=== PATIENT | female | born 1960 ===

== ENCOUNTER 2024-02-07 06:10 | Day surgery (SDC) | payer OTHER, SELFPAY ==
[2024-02-07 06:56] VITALS: BMI 22.3
[2024-02-07 07:16] VITALS: BMI 22.3
[2024-02-07 07:30] VITALS: BP 132/83
[2024-02-07 08:58] VITALS: BP 113/81
[2024-02-07 09:00] VITALS: BP 122/74
[2024-02-07 09:15] VITALS: BP 129/81
== END 2024-02-07 09:35 | disposition home or self-care (01) ==
LOC: SDS 06:10
PROVIDERS: ATTENDING PHYSICIAN Internal Medicine Gastroenterology
DX: K31.7 Polyp of stomach and duodenum (principal); R93.3 Abnormal findings on diagnostic imaging of other parts of digestive tract
CPT/HCPCS: 43251; 43237; 88305